=== PATIENT | male | born 1980 | race Caucasian/White ===

== ENCOUNTER 2016-10-24 05:23 | Day surgery (SDC) | payer MEDICARE, OTHER ==
[2016-10-23 16:52] VITALS: BMI 21.8
[~2016-10-24] VITALS: Ht 170.2 cm; Wt 65.6 kg
[2016-10-24] VITALS (9 sets, daily range): BP systolic 105–128; BP diastolic 59–82; PULSE 77–95; RESP 16–20; Ht 170.2 cm; Wt 65.6 kg
[~2016-10-24 05:23] MED LIST: ALPR1TAB2 PO; CARI250T PO; TRAM-40 PO
--- NOTE | 2016-10-24 07:52 | HPN ---
Date/Time of Note Date/Time of Note DATE: 10/24/16 TIME: 07:51 Interval H&P Admission Note Pt. seen H&P reviewed: No system changes JOHN SCHMIDT Oct 24, 2016 07:52
[2016-10-24] MEDS ORDERED: MIDAZOLAM 1 MG/ML 2 ML INJ ONE ×2 (07:55)
[2016-10-24] MEDS ORDERED: PROPOFOL 20 ML ONE (07:55)
[2016-10-24] MEDS ORDERED: CEFAZOLIN 1 GM INJ ONE (07:55)
[2016-10-24] MEDS ORDERED: FENTAnyl 50 MCG/ML VIAL ONE (07:55)
[2016-10-24] MEDS ORDERED: LIDOCAINE 1% (MPF) 30 ML INJ ONE (07:56)
[2016-10-24] MEDS ORDERED: ROPIVACAINE 0.5 % 30 ML VIAL ONE (07:57)
[2016-10-24] MEDS ORDERED: ROPIVACAINE 0.2% 20 ML VIAL ONE (07:57)
[2016-10-24] MEDS ORDERED: BUPIVACAINE 0.25% (MPF) 30 ML INJ ONE (07:57)
[2016-10-24] MEDS ORDERED: morphine (1 MG/ML) 10ML SYRINGE IV PRN ×3 (09:00)
[2016-10-24] MEDS ORDERED: LORAZEPAM 2 MG INJ IV PRN (09:00)
[2016-10-24] MEDS ORDERED: MEPERIDINE 25 MG INJ IV PRN (09:00)
[2016-10-24] MEDS ORDERED: MIDAZOLAM 1 MG/ML 2 ML INJ IV PRN (09:00)
[2016-10-24] MEDS ORDERED: FENTAnyl 50 MCG/ML VIAL IV PRN ×3 (09:00)
[2016-10-24] MEDS ORDERED: DIPHENHYDRAMINE 50 MG INJ IV PRN (09:00)
[2016-10-24] MEDS ORDERED: ONDANSETRON 4 MG INJ IV PRN (09:00)
[2016-10-24] MEDS ORDERED: HYDROmorphONE (0.2 MG/ML) 10ML SYG IV PRN ×3 (09:00)
[2016-10-24] MEDS ORDERED: EPHEDrine SULFATE 50 MG/5 ML SYG IV PRN (09:00)
[2016-10-24] MEDS ORDERED: METOCLOPRAMIDE 10 MG INJ ONE ×2 (09:42→11:42)
[2016-10-24] MEDS ORDERED: KETOROLAC 30 MG INJ ONE ×2 (09:42→11:43)
[2016-10-24] MEDS ORDERED: ONDANSETRON 4 MG INJ ONE ×2 (09:42→11:42)
[2016-10-24] MEDS ORDERED: DEXAMETHASONE 4 MG/ML 1 ML INJ ONE ×3 (09:42→11:43)
--- NOTE | 2016-10-24 11:01 | OPR ---
DATE OF OPERATION: 10/24/2016 SURGEON: John Cochran MD ANESTHESIA: Popliteal block. PREOPERATIVE DIAGNOSIS: Painful bunion, right foot. POSTOPERATIVE DIAGNOSIS: Painful bunion, right foot. OPERATION PERFORMED: 1. Chevron type bunionectomy of the right foot with 3-0 screw fixation. 2. Derek type osteotomy with 10 mm staple fixation. DESCRIPTION OF PROCEDURE: The patient was brought into the OR and placed on the OR table in a secur e supine position. Pneumatic ankle tourniquet was placed about the right ankle. Following poplitea l block the foot was exsanguinated using Esmarch. The tourniquet was then inflated to 250 mmHg. A linear incision was made over the medial aspect of the right foot over the first MTP joint. The s kin incision was deepened using sharp and blunt dissection. A T-shaped capsulotomy was performed ov er the first MTP joint. The medial eminence of the first metatarsal head was noted to be very promi nent. The sagittal saw was used to resect the medial eminence. After copious lavage a Chevron type osteotomy was placed about the head of the first metatarsal. The distal fragment was shifted latera lly and the first metatarsal was fixated using a 3-0 22 mm screw. All sharp edges were rasped marbin h. Attention was then paid to the proximal phalanx of the first hallux which was deviated laterally . A sagittal saw was used for a transverse cut of the proximal aspect of the proximal phalanx. A s econd cut was made distal to this going from distal medial to proximal lateral and a wedge of bone f rom the proximal aspect of the proximal phalanx was taken out. This was fixated using a 10 mm x 10 mm staple. After copious lavage 3-0 sutures were used for capsule, 4-0 for subcutaneous, and then t he skin was reapproximated using 4-0 nylon. Xeroform gauze, Kerlix and Coban was used for dressing. At this point, the pneumatic ankle tourniquet was deflated and immediate hyperemia was noted to di gits 1 through 5 of the right foot. The patient left the OR with vital signs stable. Patient will be followed up in the clinic on Thursday. Dictated By: JOHN AVELAR/MICHELLE Conf#: [id number] DID#: [id number]
[2016-10-24] MEDS ORDERED: PHENYLephrine (100 MCG/ML) 5ML SYG ONE (11:13)
[2016-10-24] MEDS ORDERED: ACETAMINOPHEN 1000MG/100ML IV 100 ML ONE (11:42)
[2016-10-24] MEDS ORDERED: SUCCINYLCHOLINE CHLORIDE 100 MG/5 ML SYG IV ONE (11:42)
[2016-10-24] MEDS ORDERED: ROCURONIUM 50 MG INJ ONE ×2 (11:42→11:43)
[2016-10-24] MEDS ORDERED: GLYCOPYRROLATE 0.4 MG INJ ONE ×2 (11:43→12:18)
[2016-10-24] MEDS ORDERED: NEOSTIGMINE 3 MG/3 ML SYRINGE ONE (12:18)
== END 2016-10-24 11:43 | disposition home or self-care (01) ==
LOC: SDS 05:23
PROVIDERS: ATTEND Podiatrist
DX: M21.611 Bunion of right foot (principal); E11.9 Type 2 diabetes mellitus without complications; J45.909 Unspecified asthma, uncomplicated; F17.200 Nicotine dependence, unspecified, uncomplicated
CPT/HCPCS: 28298; 82962; J0131; J1100; J1885; J2250; J2405; J2765; J2795; J3010; J0330; J0690; J2370; J2710

== ENCOUNTER 2017-08-06 23:17 | Inpatient (IN) | payer MEDICARE, OTHER ==
[~2017-08-06] VITALS: Ht 170.2 cm; Wt 65.3 kg
--- NOTE | 2017-08-06 23:27 | ERD ---
ER Documentation Chief Complaint Chief Complaint Right foot cold HPI The patient is a 37-year-old male, presenting to the ER because of cold and clammy with decreased sensation of the right leg for 1 day, worse this evening. He had right bunionectomy on October 2016, he had the hardware on the right foot removed 3 days ago in the office. He denies fever, chills, neck pain, chest pain, abdominal pain, vomiting, dysuria, fecal/urinary incontinence. He is unable to his right toes because he has no sensation below the mid tibia. He smokes, denies illicit drug, drinks socially. He has chronic right leg numbness after back surgery, but this is new for 1 day. Medical history: Anxiety, hypertension, diabetes mellitus, asthma, chronic low back pain Past surgical history: Back surgery ROS All systems reviewed and are negative except as per history of present illness. Medications Home Meds Reported Medications Alprazolam* (Xanax*) 1 Mg Tab, 1 MG PO TID, TAB 10/23/16 Tramadol Hcl* (Ultram*) 50 Mg Tablet, 50 MG PO Q8, TAB 10/23/16 Discontinued Reported Medications Carisoprodol* (Soma*) 250 Mg Tablet, 300 MG PO Q8, TAB 10/23/16 Allergies Allergies: Coded Allergies: No Known Allergies (Unverified Allergy, Unknown, 08/07/17) PMhx/Soc History of Surgery: Yes (BACK SX) Anesthesia Reaction: No Hx Neurological Disorder: No Hx Respiratory Disorders: No Hx Cardiac Disorders: No Hx Psychiatric Problems: No Hx Miscellaneous Medical Probl: No Hx Alcohol Use: No Hx Substance Use: No Hx Tobacco Use: Yes Physical Exam Vitals Vital Signs Date Time Temp Pulse Resp B/P Pulse Ox O2 Delivery O2 Flow Rate FiO2 08/07/17 00:03 98.8 89 19 126/81 100 08/06/17 23:30 98.4 76 16 143/91 100 Room Air Physical Exam Const: No acute distress. Head: Atraumatic. Eyes: Normal Conjunctiva. ENT: Normal External Ears, Nose and Mouth. Neck: Full range of motion. No meningismus. Resp: Clear to auscultation bilaterally. Cardio: Regular rate and rhythm. Abd: Soft, non distended, normal bowel sounds, non tender. Skin: No petechiae or rashes. Back: No midline or flank tenderness. Ext: Right foot is cold and clammy with faint dorsal pedalis and posterior tibialis pulse, no calf tenderness Neur: Awake and alert. No focal deficit Psych: Normal Mood and Affect. Result Diagram: 08/07/17 0005 08/07/17 0005 Results 24 hrs Laboratory Tests Test 08/07/17 00:05 08/07/17 04:31 White Blood Count 9.310^3/ul Red Blood Count 4.7410^6/ul Hemoglobin 15.4g/dl Hematocrit 43.9% Mean Corpuscular Volume 92.6fl Mean Corpuscular Hemoglobin 32.5pg Mean Corpuscular Hemoglobin Concent 35.1g/dl Red Cell Distribution Width 11.8% Platelet Count 10368^3/UL Mean Platelet Volume 10.9fl Neutrophils % 50.5% Lymphocytes % 35.7% Monocytes % 6.5% Eosinophils % 5.4% Basophils % 0.8% Nucleated Red Blood Cells % 0.0/100WBC Neutrophils # 4.710^3/ul Lymphocytes # 3.310^3/ul Monocytes # 0.610^3/ul Eosinophils # 0.510^3/ul Basophils # 0.110^3/ul Nucleated Red Blood Cells # 0.010^3/ul Prothrombin Time 11.0Sec Prothrombin Time Ratio 0.9 INR International Normalized Ratio 0.79 Activated Partial Thromboplast Time 30.1Sec Sodium Level 138mmol/L Potassium Level 3.9mmol/L Chloride Level 100mmol/L Carbon Dioxide Level 28mmol/L Anion Gap 14 Blood Urea Nitrogen 25mg/dl Creatinine 0.94mg/dl Glucose Level 244mg/dl Calcium Level 10.1mg/dl Bedside Glucose 231mg/dL Current Medications Medications (Trade) Dose Ordered Sig/Rachael Route PRN Reason Start Time Stop Time Status Last Admin Dose Admin Heparin Sodium (Porcine) 5200 unit 5,200 unit ONCE ONCE IV 08/07/17 00:30 08/07/17 00:31 DC Heparin Sodium (Porcine) (Heparin 56194 Units/250 ml) 250 ml @ 0 mls/hr PER PROTOCOL IV 08/07/17 00:30 08/07/17 00:30 DC Heparin Sodium (Porcine) 5200 unit 5,200 unit ONCE IV 08/07/17 00:05 08/07/17 00:09 DC 08/07/17 00:19 Heparin Sodium (Porcine) (Heparin 86531 Units/250 ml) 250 ml @ 11.5 mls/hr Q24H IV 08/07/17 00:15 08/07/17 00:27 Heparin Sodium (Porcine) PRN PRN IV PENDING LAB VALUE 08/07/17 06:00 Sodium Chloride (NS) 100 ml @ ud STK-MED ONCE .ROUTE 08/07/17 00:54 08/07/17 00:55 DC 08/07/17 01:22 Iohexol (Omnipaque 300mg/ ml) 150 ml STK-MED ONCE .ROUTE 08/07/17 00:54 08/07/17 00:55 DC 08/07/17 01:23 Morphine Sulfate (morphine) 2 mg ONCE STAT IV 08/07/17 02:22 08/07/17 02:23 DC 08/07/17 02:33 Ondansetron HCl (Zofran Inj) 4 mg ONCE STAT IV 08/07/17 02:22 08/07/17 02:23 DC 08/07/17 02:33 Hydromorphone HCl (Dilaudid) 1 mg ONCE STAT IV 08/07/17 04:04 08/07/17 04:05 DC 08/07/17 04:18 Procedures/[place] [address] Radiology Main Line: [phone] DIAGNOSTIC IMAGING REPORT Patient: DANA HECK : 1980 Age: 37 Sex: M MR #: [id number] DOS: 08/06/17 [facility] Ordering MD: CHEN LAND MD Location: E/R Room/Bed: PROCEDURE: CTA lower extremity runoff CLINICAL INDICATION: Numbness. TECHNIQUE: A CT angiogram of the lower extremities was performed with intravenous contrast. The patient was scanned following the uncomplicated intravenous administration of 120 cc of Omnipaque-300. Coronal MIP, coronal, and sagittal reformatted images were obtained from the axial source images. DICOM images are available. Images were reviewed on a high-resolution PACS workstation. CTDIvol: 8.22, 106.80, 5.54 mGy. DLP: 750.36 mGy-cm. One or more of the following dose reduction techniques were used: Automated exposure control. Adjustment of the mA and/or kV according to patient size. Use of iterative reconstruction technique. COMPARISON: None available FINDINGS: The bilateral common femoral, deep femoral, superficial femoral, popliteal, anterior tibial, dorsalis pedis, posterior tibial, and peroneal arteries are normal in appearance. There is no fracture or dislocation. No degenerative changes are identified. The soft tissue structures of the lower extremities are unremarkable. IMPRESSION: 1. Normal CT angiogram of the lower extremities. RPTAT: HTAR .Lalito Castillo MD, Date Time Electronically viewed and signed by .Lalito Castillo MD, MD on 08/07/2017 02:04 .R/ CC: CHEN LAND MD [place] [address] Radiology Main Line: [phone] DIAGNOSTIC IMAGING REPORT Patient: DANA HECK : 1980 Age: 37 Sex: M MR #: [id number] DOS: 08/06/17 [facility] Ordering MD: CHEN LAND MD Location: E/R Room/Bed: PROCEDURE: XR Foot. CLINICAL INDICATION: pain TECHNIQUE: AP, lateral and oblique views of the right foot was obtained. The images were reviewed on a PACS workstation. COMPARISON: None. FINDINGS: The bones of the foot appear intact, with no evidence of acute fracture, dislocation, or subluxation. There is evidence of great toe proximal phalanx, first metatarsal osteotomy. The joint spaces are preserved. Bone mineralization is normal. Mild soft tissue swelling is seen. IMPRESSION: Status post great toe proximal phalanx, metatarsal osteotomy. No acute osseous abnormality. Physician Palak Date Time Electronically viewed and signed by Migue Russell Physician on 08/07/2017 03: 05 CS/ CC: CHEN LAND MD [place] [address] Radiology Main Line: [phone] DIAGNOSTIC IMAGING REPORT Patient: DANA HECK : 1980 Age: 37 Sex: M MR #: [id number] DOS: 08/07/17 2332 Ordering MD: CHEN LAND MD Location: E/R Room/Bed: PROCEDURE: US Lower extremity arterial. CLINICAL INDICATION: Lowered pulse, pain TECHNIQUE: Multiple sonographic images of the right lower extremity arteries were obtained utilizing grayscale, color-flow and doppler imaging. The images were reviewed on a PACS workstation. COMPARISON: None. FINDINGS: There is no definite significant calcific plaque seen. Velocities and waveforms were obtained as described below. RIGHT LEG: Right common femoral artery: 108.6 cm/s; triphasic waveforms Right proximal superficial femoral artery: 97.3 cm/s; triphasic waveforms Right mid superficial femoral artery: 100.6 cm/s; triphasic waveforms Right distal superficial femoral artery: 76.7 cm/s; triphasic waveforms Right popliteal artery: 64.8 cm/s; triphasic waveforms Right posterior tibial artery: 52.6 cm/s; triphasic waveforms Right dorsalis pedis artery: 55.2 cm/s; monophasic waveforms IMPRESSION: Monophasic flow in the right dorsalis pedis artery. Otherwise unremarkable examination as noted above. RPTAT: HJES .Wade Olivo MD, MD Date Time Electronically viewed and signed by .Wade Olivo MD, MD on 08/07/2017 02:01 .S/ CC: CHEN LAND MD MEDICAL MAKING DECISION: The patient is 37-year-old male, presenting to the ER because of clinical ischemic right foot. He was immediately treated with heparin IV bolus and heparin drip while waiting for arterial ultrasound and CT angiogram of the lower extremity. He was treated with morphine 2 mg IV and Dilaudid 1 mg IV for his chronic low back pain and Zofran 4mg IV for nausea with good response Consultation: As soon as patient arrived, I started the patient on heparin and consult vascular surgeon Dr Jennings, who could not attend the patients. I have called multiple vascular surgeons on staff, but none was available. We have tried to transfer the pt for higher level of care but unsuccessful Fortunately, the pt improved clinically and arterial US and CTA are negative. Although the arterial ultrasound and CT angiogram did not show any ischemia, he improved remarkably. His right lower extremity became warm with strong pulses after he was on heparin for a few hours, Departure Diagnosis: Primary Impression: Ischemic pain of right foot Additional Impression: Back pain Condition: Stable Comments I paged his physician Dr Huber for many hours, but he did not return the call I discussed the findings with the patient. I discussed the patient with the on- call hospitalist Dr. Dial at 5:40 AM per warehouse representative's recommendation, who was made aware of the lab, the treatment, the patient condition. The patient is admitted to [facility] Disclaimer: Inadvertent spelling and grammatical errors are likely due to EHR/ dictation software use and do not reflect on the overall quality of patient care. Also, please note that the electronic time recorded on this note does not necessarily reflect the actual time of the patient encounter. CHEN LAND MD Aug 06, 2017 23:27
[2017-08-06 23:30] VITALS: TEMP 98.4
[2017-08-07] MEDS ORDERED: HEPARIN 1000 UNITS/ML 10 ML INJ IV SCH (00:05)
[2017-08-07] MEDS ORDERED: HEPARIN 25000 UNITS/D5W 250 ML (VPH) IV SCH (00:15)
[2017-08-07] MEDS ORDERED: HEPARIN 1000 UNITS/ML 10 ML INJ IV ONE (00:30)
[2017-08-07] MEDS ORDERED: HEPARIN 25000 UNITS/250 ML 250 ML IV SCH (00:30)
[2017-08-07 00:43] LABS: INR 0.79; PT RATIO 0.9
[2017-08-07 00:44] LABS: PARTIAL THROMBOPLASTIN TIME 30.1 Sec (25.0-35.0)
[2017-08-07 00:47] LABS: CALCIUM 10.1 mg/dl (8.4-10.2); CREATININE 0.94 mg/dl (0.61-1.24); POTASSIUM 3.9 mmol/L (3.5-5.1)
[2017-08-07] MEDS ORDERED: IOHEXOL 300MG/ML 150 ML BTL ONE (00:54)
[2017-08-07] MEDS ORDERED: SOD CHLORIDE 0.9% 100 ML ONE (00:54)
[2017-08-07 01:39] LABS: BASOPHIL # 0.1 10^3/ul (0.0-0.1); BASOPHILS % 0.8 % (0.0-2.0); EOSINOPHILS # 0.5 10^3/ul (0.0-0.5); EOSINOPHILS % 5.4 % (0.0-7.0); HEMATOCRIT 43.9 % (42.0-52.0); HEMOGLOBIN 15.4 g/dl (14.0-18.0); LYMPHOCYTES # 3.3 10^3/ul (0.8-2.9); LYMPHOCYTES % 35.7 % (15.0-51.0); MEAN CORPUSCULAR HEMOGLOBIN 32.5 pg (29.0-33.0); MEAN CORPUSCULAR HGB CONC 35.1 g/dl (32.0-37.0); MEAN CORPUSCULAR VOLUME 92.6 fl (82.0-101.0); MEAN PLATELET VOLUME 10.9 fl (7.4-10.4); MONOCYTE # 0.6 10^3/ul (0.3-0.9); MONOCYTES % 6.5 % (0.0-11.0); NEUTROPHIL # 4.7 10^3/ul (1.6-7.5); NEUTROPHILS % 50.5 % (39.0-77.0); PLATELET COUNT 276 10^3/UL (140-415); RED BLOOD COUNT 4.74 10^6/ul (4.70-6.10); RED CELL DISTRIBUTION WIDTH 11.8 % (11.5-14.5); WHITE BLOOD COUNT 9.3 10^3/ul (4.8-10.8)
--- NOTE | 2017-08-07 02:01 | RADRPT ---
PROCEDURE: US Lower extremity arterial. CLINICAL INDICATION: Lowered pulse, pain TECHNIQUE: Multiple sonographic images of the right lower extremity arteries were obtained utilizi ng grayscale, color-flow and doppler imaging. The images were reviewed on a PACS workstation. COMPARISON: None. FINDINGS: There is no definite significant calcific plaque seen. Velocities and waveforms were obtained as described below. RIGHT LEG: Right common femoral artery: 108.6 cm/s; triphasic waveforms Right proximal superficial femoral artery: 97.3 cm/s; triphasic waveforms Right mid superficial femoral artery: 100.6 cm/s; triphasic waveforms Right distal superficial femoral artery: 76.7 cm/s; triphasic waveforms Right popliteal artery: 64.8 cm/s; triphasic waveforms Right posterior tibial artery: 52.6 cm/s; triphasic waveforms Right dorsalis pedis artery: 55.2 cm/s; monophasic waveforms IMPRESSION: Monophasic flow in the right dorsalis pedis artery. Otherwise unremarkable examination as noted abov e. RPTAT: HJES .Wade Olivo MD, Date Time Electronically viewed and signed by .Wade Olivo MD, on 08/07/2017 02:01 .S/
--- NOTE | 2017-08-07 02:04 | RADRPT ---
PROCEDURE: CTA lower extremity runoff CLINICAL INDICATION: Numbness. TECHNIQUE: A CT angiogram of the lower extremities was performed with intravenous contrast. The p atient was scanned following the uncomplicated intravenous administration of 120 cc of Omnipaque-300 . Coronal MIP, coronal, and sagittal reformatted images were obtained from the axial source images. DICOM images are available. Images were reviewed on a high-resolution PACS workstation. CTDIvol: 8. 22, 106.80, 5.54 mGy. DLP: 750.36 mGy-cm. One or more of the following dose reduction techniques were used: Automated exposure control. Adjustment of the mA and/or kV according to patient size. Use of iterative reconstruction technique. COMPARISON: None available FINDINGS: The bilateral common femoral, deep femoral, superficial femoral, popliteal, anterior tibial, dorsali s pedis, posterior tibial, and peroneal arteries are normal in appearance. There is no fracture or dislocation. No degenerative changes are identified. The soft tissue structu res of the lower extremities are unremarkable. IMPRESSION: 1. Normal CT angiogram of the lower extremities. RPTAT: HTAR .Lalito Castillo MD, MD Date Time Electronically viewed and signed by .Lalito Castillo MD, on 08/07/2017 02:04 .R/
[2017-08-07] MEDS ORDERED: morphine 4 MG/ML VIAL IV STA (02:22)
[2017-08-07] MEDS ORDERED: ONDANSETRON 4 MG INJ IV STA (02:22)
--- NOTE | 2017-08-07 03:06 | RADRPT ---
PROCEDURE: XR Foot. CLINICAL INDICATION: pain TECHNIQUE: AP, lateral and oblique views of the right foot was obtained. The images were reviewed on a PACS workstation. COMPARISON: None. FINDINGS: The bones of the foot appear intact, with no evidence of acute fracture, dislocation, or subluxation . There is evidence of great toe proximal phalanx, first metatarsal osteotomy. The joint spaces are preserved. Bone mineralization is normal. Mild soft tissue swelling is seen. IMPRESSION: Status post great toe proximal phalanx, metatarsal osteotomy. No acute osseous abnormality. Physician Palak Date Time Electronically viewed and signed by Physician Palak on 08/07/2017 03:05 MARQUES/
[2017-08-07] MEDS ORDERED: HYDROmorphONE 1 MG/ML SYG IV STA (04:04)
[2017-08-07 06:00] VITALS: PULSE 66
[2017-08-07] MEDS ORDERED: HEPARIN 1000 UNITS/ML 10 ML INJ IV PRN (06:00)
[2017-08-07 06:37] VITALS: Ht 170.2 cm; Wt 65.3 kg
[2017-08-07] MEDS ORDERED: AMOX500C2 PO (06:43)
[2017-08-07] MEDS ORDERED: HYDR-902 PO (06:43)
[2017-08-07 06:48] VITALS: BP 144/90; RESP 18
[2017-08-07 08:09] VITALS: BP 138/83; RESP 18
[2017-08-07] MEDS ORDERED: HYDROmorphONE 0.5 MG/0.5 ML SYG IV PRN (09:00)
[2017-08-07] MEDS ORDERED: ALPRAZOLAM 1 MG TAB PO PRN (09:00)
[2017-08-07] MEDS ORDERED: HYDROCODONE/APAP (10/325) TAB PO PRN (09:00)
[2017-08-07] MEDS: AMOXICILLIN 500 MG CAP PO SCH ×2 (10:33→15:30)
[2017-08-07] MEDS ORDERED: HYDROmorphONE 2 MG TAB PO PRN (11:47)
[2017-08-07] MEDS ORDERED: ACETAMINOPHEN 325 MG TAB PO PRN (12:00)
[2017-08-07] MEDS ORDERED: ACCU-CHEK XX SCH (12:30)
[2017-08-08] MEDS ORDERED: INFLUENZA VIRUS VACCINE 0.5 ML SYG IM* ONE (09:00)
--- NOTE | 2017-08-10 06:56 | RADRPT ---
PROCEDURE: ULTRASOUND RIGHT LOWER EXTREMITY VENOUS CLINICAL INDICATION: 37-year-old male with right lower extremity pain. TECHNIQUE: Multiple sonographic images of the right lower extremity deep venous system was obtaine d utilizing grayscale, color-flow, compressive sonography and doppler imaging with augmentation. Th e images were reviewed on a PACS workstation. COMPARISON: None. FINDINGS: There is normal compressibility and flow within the right common femoral, deep femoral, superficial femoral, popliteal, posterior tibial and peroneal veins. IMPRESSION: No sonographic evidence for right lower extremity deep venous thrombosis. .Norman Weems MD, MD Date Time Electronically viewed and signed by .Norman Weems MD, on 08/10/2017 06:56 .Kenan/
== END 2017-08-07 15:50 | disposition left against medical advice (07) | DRG 303 ==
LOC: E/R 23:17 → PP2 08-07 05:43
PROVIDERS: ADMIT Internal Medicine; ATTEND Internal Medicine
DX: I99.8 Other disorder of circulatory system (principal); I10 Essential (primary) hypertension; F41.9 Anxiety disorder, unspecified; M54.9 Dorsalgia, unspecified; E11.9 Type 2 diabetes mellitus without complications; J45.909 Unspecified asthma, uncomplicated
CPT/HCPCS: 73630; 73706; 80048; 82962; 83036; 85025; 85610; 85730; 93926; 93971; 96374; 96375; J1170; J1644; J2270; J2405; Q9967